=== PATIENT | female | born 1960 | race Caucasian/White ===

== ENCOUNTER 2022-06-28 07:42 | Emergency (ER) | payer OTHER ==
[~2022-06-28] VITALS: Ht 162.6 cm; Wt 68.5 kg
== END 2022-06-28 09:48 | disposition home or self-care (01) ==
LOC: ED 07:42
DX: R31.9 Hematuria, unspecified (principal); R30.0 Dysuria; N81.4 Uterovaginal prolapse, unspecified
CPT/HCPCS: 81001; 99283